=== PATIENT | female | born 1945 | race Caucasian/White ===

== ENCOUNTER 2018-04-13 22:08 | Emergency (ER) | payer MEDICARE ==
[2018-04-13 23:17] VITALS: BP 145/93
--- NOTE | 2018-04-13 23:18 | RADIOLOGY REPORT (SQ) ---
Portable chest HISTORY: Shortness of breath. FINDINGS: The heart is not enlarged. Aorta is within normal limits. No consolidation or pleural effusion. No pulmonary edema or pneumothorax. IMPRESSION: No acute disease.
[2018-04-13 23:22] LABS: HEMATOCRIT 38.9 % (36.0-47.0); HEMOGLOBIN 13.2 g/dL (12.0-15.5); MEAN CORPUSCULAR HGB CONC 33.8 g/dL (32.0-36.0); MEAN CORPUSCULAR VOLUME 95 fl (80-97); PLATELET COUNT 315 10^3/uL (150-450); RED BLOOD COUNT 4.12 10^6/uL (3.72-5.28); RED CELL DISTRIBUTION WIDTH 13.5 % (11.5-14.0); WHITE BLOOD COUNT 5.2 10^3/uL (4.0-10.5)
[2018-04-13 23:35] LABS: ANION GAP 11 (5-19); BLOOD UREA NITROGEN 8 mg/dL (7-20); CALCIUM 9.5 mg/dL (8.4-10.2); CARBON DIOXIDE 25 mmol/L (22-30); CHLORIDE 103 mmol/L (98-107); GLUCOSE 88 mg/dL (75-110); POTASSIUM 4.3 mmol/L (3.6-5.0); SODIUM 138.7 mmol/L (137-145)
[2018-04-13] MEDS ORDERED: METOCLOPRAMIDE HCL ORAL SOLN 10 MG/10 ML UDCUP PO ONE (23:35)
[2018-04-13] MEDS ORDERED: LIDOCAINE 2% VISCOUS SOLN 20 ML UDCUP PO ONE (23:35)
[2018-04-13] MEDS ORDERED: FAMOTIDINE 20 MG TABLET PO ONE (23:35)
[2018-04-13] MEDS ORDERED: MAG HYDROX/AL HYDROX/SIMETH SUSP 30 ML UDCUP PO ONE (23:35)
--- NOTE | 2018-04-13 23:39 | ER Document Report ---
ED General - General Chief Complaint: Chest Pain Stated Complaint: CHEST PAIN,NAUSEA,DIZZINESS Time Seen by Provider: 04/13/18 22:58 Notes: Patient is a 73-year-old female without chronic medical problems, presents with multiple complaints. Patient firstly complains of approximately 2-3 weeks of intermittent chest heaviness, a feeling of upper abdominal discomfort. She states the symptoms are triggered by eating, seemed to resolve after period of time spontaneously. States that she this feels very similar to when she has had a duodenal ulcer in the past. She denies any melena, hematochezia or hematemesis. She has not trying to improve her symptoms. She has not seen her general doctor regarding today's concerns. She does describe the discomfort as being a heaviness, achiness to the upper abdomen and chest. Denies any symptoms at the time my assessment. No shortness of breath, vomiting, pleuritic pain, history of DVT or pulmonary embolus, or use of estrogen. TRAVEL OUTSIDE OF THE [place] IN LAST 30 DAYS: No - Related Data Allergies/Adverse Reactions: Penicillins Allergy (Verified 04/13/18 22:15) Past Medical History - General Information source: Patient - Social History Smoking Status: Never Smoker Frequency of alcohol use: None Drug Abuse: None Lives with: Family Family History: Reviewed & Not Pertinent Patient has suicidal ideation: No Patient has homicidal ideation: No Renal/ Medical History: Denies: Hx Peritoneal Dialysis Musculoskeletal Medical History: Reports Hx Arthritis Review of Systems - Review of Systems Notes: Constitutional: Negative for fever. HENT: Negative for sore throat. Eyes: Negative for visual changes. Cardiovascular: Positive for chest pain. Respiratory: Negative for shortness of breath. Gastrointestinal: Negative for abdominal pain, positive for nausea Genitourinary: Negative for dysuria. Musculoskeletal: Negative for back pain. Skin: Negative for rash. Neurological: Negative for headaches, weakness or numbness. 10 point ROS negative except as marked above and in HPI. Physical Exam - Vital signs Vitals: Temp Pulse Resp BP Pulse Ox 98 F 66 18 169/91 H 99 04/13/18 22:22 04/13/18 22:22 04/13/18 22:22 04/13/18 22:22 04/13/18 22:22 Interpretation: Hypertensive Notes: PHYSICAL EXAMINATION: GENERAL: Well-appearing, well-nourished and in no acute distress. HEAD: Atraumatic, normocephalic. EYES: Pupils equal round and reactive to light, extraocular movements intact, sclera anicteric, conjunctiva are normal. ENT: nares patent, oropharynx clear without exudates. Moist mucous membranes. NECK: Normal range of motion, supple without lymphadenopathy LUNGS: Breath sounds clear to auscultation bilaterally and equal. No wheezes rales or rhonchi. HEART: Regular rate and rhythm without murmurs ABDOMEN: Soft, nontender, normoactive bowel sounds. No guarding, no rebound. No masses appreciated. EXTREMITIES: Normal range of motion, no pitting or edema. No cyanosis. NEUROLOGICAL: No focal neurological deficits. Moves all extremities spontaneously and on command. PSYCH: Normal mood, normal affect. SKIN: Warm, Dry, normal turgor, no rashes or lesions noted. Course - Re-evaluation Re-evalutation: 04/13/18 23:36 Presentation of chest pain in an otherwise well appearing patient. Low clinical suspicion for ACS given clinical history, exam, EKG without ST elevations or depressions, and negative initial troponin. HEART score less than or equal to 3. PE also seems unlikely given clinical history, absence of tachycardia or dyspnea. Wells score is 0. CXR without evidence of pneumothorax or pneumonia. No widened mediastinum. Aortic dissection also seems unlikely given history, symmetric pulses, CXR, and vitals. Patient has been having ongoing intermittent symptoms for at least 3 weeks. Clinical history actually sounds most consistent with gastroesophageal reflux that she reports her symptoms are triggered by eating and are associated with nausea and feeling like she cannot fully swallow her food. She has had significant improvement with medical treatment here in the emergency department. Lipase and LFTs are normal. No right upper quadrant abdominal tenderness to suggest an acute biliary pathology. Patient did also complain of some lightheadedness and dizziness. Neurologic exam at the bedside including cerebellar testing completely unremarkable. The patient states that she does feel somewhat dehydrated as she has not really been eating or drinking due to her above symptoms. I do not see an indication for neuroimaging at this point. At this time will discharge with return precautions and follow-up recommendations. Verbal discharge instructions given a the bedside and opportunity for questions given. Medication warnings reviewed. Patient is in agreement with this plan and has verbalized understanding of return precautions and the need for primary care follow-up in the next 24-72 hours. - Vital Signs Vital signs: Temp Pulse Resp BP Pulse Ox 98 F 66 13 145/93 H 98 04/13/18 22:22 04/13/18 22:22 04/13/18 23:01 04/13/18 23:01 04/13/18 23:01 - Laboratory Result Diagrams: 04/13/18 23:10 04/13/18 23:10 - Diagnostic Test Radiology reviewed: Image reviewed, Reports reviewed Radiology results interpreted by me: 04/13/18 23:37 Chest x-ray: No acute infiltrate or pneumothorax - EKG Interpretation by Me Additional EKG results interpreted by me: 04/13/18 23:38 Sinus rhythm. Rate 61. No ST elevations or depressions. QTC is 461 Discharge - Discharge Clinical Impression: Chest discomfort, Lightheadedness Gastroesophageal reflux Qualifiers: Esophagitis presence: esophagitis presence not specified Qualified Code(s): K21.9 - Gastro-esophageal reflux disease without esophagitis Condition: Good Disposition: HOME, SELF-CARE Additional Instructions: You were seen today for chest pain. The exact cause of your pain is unclear. However, based on your cardiac enzyme testing, chest x-ray, and EKG it does not appear that it is from an immediately life-threatening cause at this time. Although your testing here is normal is critical that you follow-up with your primary care physician for continued evaluation of this chest pain and possible stress testing. I recommended you see your physician within the next 24-48 hours to be evaluated for consideration of a stress test. Please return to emergency department immediately if you have worsening of your chest pain, shortness of breath, vomiting, become unable to exert yourself due to pain or difficulty breathing, you pass out, or have any pain that radiates into your arms, jaw, or back. Please also return if you have any additional symptoms that are concerning to you. Your symptoms appear to be most consistent with stomach or upper intestinal irritation. Please begin taking famotidine 40 mg in the morning and 40 mg at night. This medicine can be purchased directly [id number]. You may also take medicine such as Pepto-Bismol or Tums to assist with your pain. Please return to emergency department immediately if you have worsening of your pain, shortness of breath, vomiting, become unable to exert yourself due to pain or difficulty breathing, you pass out, or have any pain that radiates into your arms, jaw, or back. Please also return if you have any additional symptoms that are concerning to you. As we have discussed, the most important thing is lifestyle changes. You need to avoid smoking, sodas, tea, coffee, alcohol, spicy foods, and acidic foods such as citrus fruits, tomato based products, berries, and most fruit juices. Prescriptions: Famotidine 40 mg PO BID #60 tablet Sucralfate [Carafate 1 gm Tablet] 1 gm PO ACHS #120 tablet Referrals: PHUONG CONTRERAS MD [Primary Care Provider] - Follow up tomorrow
[2018-04-13 23:56] LABS: ALANINE AMINOTRANSFERASE 24 U/L (9-52); ALKALINE PHOSPHATASE 68 U/L (38-126); ASPARTATE AMINO TRANSFERASE 31 U/L (14-36); BILIRUBIN,DIRECT 0.1 mg/dL (0.0-0.4); LIPASE 86.1 U/L (23-300); TOTAL PROTEIN 6.5 g/dL (6.3-8.2)
--- NOTE | 2018-04-14 09:34 | EKG REPORT ---
SEVERITY:- NORMAL ECG - SINUS RHYTHM : Confirmed by: Sujit Witt MD 14-Apr-2018 09:34:21
== END 2018-04-14 01:11 | disposition home or self-care (01) ==
LOC: ER 22:08
DX: K21.9 Gastro-esophageal reflux disease without esophagitis (principal); R42 Dizziness and giddiness; R07.9 Chest pain, unspecified; R11.0 Nausea; Z87.11 Personal history of peptic ulcer disease; Z88.0 Allergy status to penicillin
CPT/HCPCS: 93005; 99285; 36415; 83690; 85027; 80076; 80048; 84484; 71045; 93010; A9270 ×2; J3490

== ENCOUNTER 2018-09-17 16:17 | Emergency (ER) | payer MEDICARE ==
--- NOTE | 2018-09-17 18:04 | ER Document Report ---
ED Medical Screen (RME) - General Chief Complaint: Leg Pain Stated Complaint: KNEE PAIN Time Seen by Provider: 09/17/18 17:57 Primary Care Provider: PHUONG CONTRERAS MD [Primary Care Provider] - Follow up as needed Notes: Patient is a 73-year-old female with history of DVT that presents to the emergency department for chief complaint of left posterior knee pain and swelling. Patient has noticed this for about 2 weeks, no particular injury she is aware of, pain is constant, she reports history of DVT previously on Coumadin, not currently taking any anticoagulants. ROS: Other than noted above, the 12 point review of systems was reviewed with the patient and were negative, all pertinent findings are included in the HPI. PHYSICAL EXAMINATION: Vital signs reviewed. GENERAL: Well-appearing, well-nourished and in no acute distress. HEAD: Atraumatic, normocephalic. EYES: Pupils equal round extraocular movements intact, conjunctiva are normal. ENT: Nares patent NECK: Normal range of motion CV: Heart regular rate and rhythm LUNGS: No respiratory distress Musculoskeletal: Normal range of motion, tenderness to palpation to the popliteal fossa on the left, not on the right. Crepitus with range of motion of both knees NEUROLOGICAL: Normal speech PSYCH: Normal mood, normal affect. MDM: Patient seen and examined for rapid initial assessment. Vital signs reviewed. A comprehensive ED assessment and evaluation of the patient, analysis of test results and completion of the medical decision making process will be conducted by additional ED providers. *Note is created using voice recognition software and may contain spelling, syntax or grammatical errors. TRAVEL OUTSIDE OF THE [place] IN LAST 30 DAYS: No - Related Data Allergies/Adverse Reactions: Penicillins Allergy (Verified 09/17/18 17:53) Past Medical History - Social History Chew tobacco use (# tins/day): No Frequency of alcohol use: None Drug Abuse: None Renal/ Medical History: Denies: Hx Peritoneal Dialysis Musculoskeltal Medical History: Reports Hx Arthritis Physical Exam - Vital signs Vitals: Temp Pulse Resp BP Pulse Ox 98 F 61 16 144/90 H 99 09/17/18 17:06 09/17/18 17:06 09/17/18 17:06 09/17/18 17:06 09/17/18 17:06 Course - Vital Signs Vital signs: Temp Pulse Resp BP Pulse Ox 98 F 61 16 144/90 H 99 09/17/18 17:06 09/17/18 17:06 09/17/18 17:06 09/17/18 17:06 09/17/18 17:06 Doctor's Discharge - Discharge Referrals: PHUONG CONTRERAS MD [Primary Care Provider] - Follow up as needed
--- NOTE | 2018-09-17 18:52 | ER Document Report ---
ED General - General Chief Complaint: Leg Pain Stated Complaint: KNEE PAIN Time Seen by Provider: 09/17/18 17:57 Primary Care Provider: PHUONG CONTRERAS MD [Primary Care Provider] - Follow up in 3-5 days JESSICA VINCENT DO [ACTIVE STAFF] - Follow up in 3-5 days (orthopedic surgery ) Notes: Patient is a 73-year-old female with remote history of DVT that presents to the emergency department for chief complaint of left knee pain. Patient reports having pain in the back of her knee for the past few weeks, seems to be worse with walking and movements and is mainly in the back of the knee. Denies any swelling in her extremities, and denies any pain going up the leg or coming from the back. She also denies any numbness, tingling or weakness. She currently rates the pain as a 3 out of 10, and worse with range of motion. She states she does have a history of arthritis as well. Past Medical History: DVT, osteoarthritis Past Surgical History: Denies recent or pertinent surgical history Social History: Denies current tobacco, alcohol or drug use. Family History: Reviewed and noncontributory for presenting illness Allergies: Reviewed, see documented allergy list. REVIEW OF SYSTEMS: Other than noted above, the 12 point review of systems was reviewed with the patient and were negative, all pertinent findings are included in the HPI. PHYSICAL EXAMINATION: Vital signs reviewed, nursing noted reviewed. GENERAL: Well-appearing, well-nourished and in no acute distress. HEAD: Atraumatic, normocephalic. EYES: Eyes appear normal, extraocular movements intact, sclera anicteric, conjunctiva are normal. ENT: nares patent, oropharynx clear without exudates. Moist mucous membranes. NECK: Normal range of motion, supple without lymphadenopathy LUNGS: Breath sounds clear to auscultation bilaterally and equal. No wheezes rales or rhonchi. HEART: Regular rate and rhythm without murmurs ABDOMEN: Soft, nontender, normoactive bowel sounds. No rebound, guarding, or rigidity. No masses appreciated. EXTREMITIES: There is mild tenderness to palpation to the popliteal fossa on the left compared to the right, no palpable Serra's cyst, this tenderness seems to be more on the medial aspect when compared to the lateral aspect, there is no tenderness to palpation over the deep venous system in the thigh or calf, no edema noted. There is crepitus noted with range of motion of the knee, and positive patellar grind testing. The rest of her extremity is grossly unremarkable, good range of motion, no pitting or edema. NEUROLOGICAL: No focal neurological deficits. Moves all extremities spontaneously Motor and sensory grossly intact on exam. PSYCH: Normal mood, normal affect. SKIN: Warm, Dry, normal turgor, no rashes or lesions noted on exposed skin TRAVEL OUTSIDE OF THE [place] IN LAST 30 DAYS: No - Related Data Allergies/Adverse Reactions: Penicillins Allergy (Verified 09/17/18 17:53) Past Medical History - Social History Smoking Status: Never Smoker Chew tobacco use (# tins/day): No Frequency of alcohol use: None Drug Abuse: None Family History: Reviewed & Not Pertinent Patient has suicidal ideation: No Patient has homicidal ideation: No Renal/ Medical History: Denies: Hx Peritoneal Dialysis Musculoskeletal Medical History: Reports Hx Arthritis Physical Exam - Vital signs Vitals: Temp Pulse Resp BP Pulse Ox 98 F 61 16 144/90 H 99 09/17/18 17:06 09/17/18 17:06 09/17/18 17:06 09/17/18 17:06 09/17/18 17:06 Course - Re-evaluation Re-evalutation: Duplex imaging of the left lower extremity was negative for signs of DVT, the patient's clinical exam is more consistent with meniscal injury or possible tear, given patient's history of arthritis, and posterior knee pain that seems to be worse with walking, there is no leg edema appreciated, the patient follow- up with orthopedic surgery, and advised to take [id number] NSAIDs for pain, and use an Rory wrap for support. - Vital Signs Vital signs: Temp Pulse Resp BP Pulse Ox 98.3 F 59 L 16 133/79 H 97 09/17/18 19:06 09/17/18 19:06 09/17/18 19:06 09/17/18 19:06 09/17/18 19:06 Procedures - Immobilization Left Knee Pre-Proc Neuro Vasc Exam: Normal Immobilizer type: Rory wrap Performed by: SAPPHIRE Post-Proc Neuro Vasc Exam: Normal Alignment checked and good: Yes Discharge - Discharge Clinical Impression: Knee pain Qualifiers: Chronicity: acute Laterality: left Qualified Code(s): M25.562 - Pain in left knee Condition: Stable Disposition: HOME, SELF-CARE Instructions: Suspected Internal Knee Injury ([facility]) Additional Instructions: Please follow-up with orthopedic surgery to have your knee evaluated as an outpatient, wear an Rory wrap for the next week to see if it helps with some support, he can take over the counter NSAIDs such as Aleve twice daily, or Motrin 3 times daily, one or the other and not both. Referrals: PHUONG CONTRERAS MD [Primary Care Provider] - Follow up in 3-5 days JESSICA VINCENT DO [ACTIVE STAFF] - Follow up in 3-5 days (orthopedic surgery )
[2018-09-17 19:09] VITALS: BP 133/79
--- NOTE | 2018-09-18 07:08 | RADIOLOGY REPORT (SQ) ---
CLINICAL HISTORY: lle pain, hx dvt, posterior left knee COMPARISON: None. TECHNIQUE: US EXTREMITY VEINS UNILATERAL on 09/17/2018 6:03 PM CDT FINDINGS: The left common femoral, femoral and popliteal veins are normally compressible with patent flow and augmentation. The left calf veins are patent. The right common femoral vein is patent. IMPRESSION: No DVT.
== END 2018-09-17 19:09 | disposition home or self-care (01) ==
LOC: ER 16:17
DX: M25.562 Pain in left knee (principal); Z88.0 Allergy status to penicillin
CPT/HCPCS: 93971; 99283